=== PATIENT | female | born 1965 | race Caucasian/White ===

== ENCOUNTER 2023-10-25 01:26 | Day surgery (SDC) | payer OTHER, SELFPAY ==
[2023-10-15 13:33] VITALS: BMI 24.2
--- NOTE | 2023-10-15 13:41 | PC.NURSE ---
Report to the Outpatient Waiting Room, entrance under the green pavilion located off [facility], at time 1000_ on date 10/25/23___. Planned Procedure Time: _1200_. Time changes happen often and if your time is changed the preop area will call you the afternoon before. - You and your visitor will be asked to self-screen and do not enter if you have any COVID symptoms. - A mask is optional within the hospital at this time. Patients may have clear liquids (water, carbonated beverages, clear teas, apple juice) until 3 hours prior to surgery with a maximum of 20 ounces. - No food from midnight until time of surgery - Infants may have breast milk until 4 hours before surgery, infant formula 6 hours prior to surgery. - Children will be allowed to drink immediately following surgery. If applicable, please bring a bottle or sippy cup to assist with drinking. Juice, water, soda, and popsicles are readily available. For infants on formula, please bring formula the day of surgery. Pacifiers are allowed. Take the following medications with a SIP of water the morning of surgery: __PAIN MEDICATION NEEDED_, FLOMAX DO NOT STOP ANY OF YOUR OTHER PRESCRIPTION MEDICATIONS PRIOR TO SURGERY ?EXCEPT THE FOLLOWING Medications to discontinue per physician NONE Date to take last dose Please no make-up, nail mauritian, hairspray, perfume, deodorant, or body powder the day of surgery. No jewelry (including any body piercings) or valuables the day of surgery, leave them at home. Please take a shower or bath the night before, or the morning of, surgery with an antibacterial soap. Wear comfortable, loose fitting clothing. Children are encouraged to wear pajamas. - Jewelry must be removed prior to entering the operating room. Rings and piercings that are not removed may be cut off. - The hospital will not accept responsibility for valuables. - Please leave all valuables, including medications, at home the day of surgery. If you are going home after surgery, a licensed motor vehicle escort driver must drive you home. - NO public transportation without another adult if you receive anesthesia. - We recommend that an adult stay with you for 24 hours following discharge. - We also recommend that you do not drive, make important decision, drink alcoholic beverages, or take any drugs that were not prescribed by your health care provider for at least 24 hours after your discharge time. For Pediatric surgeries, we recommend two adults accompany the child home. Follow any additional instructions given to you from your surgeon. If you or anyone in your household have experienced Covid symptoms in the past week, please notify your surgeon or the nurse liaison at the phone number below for possible testing. Telephone instructions given to __PATIENT_and asked if any additional questions and then verbalized understanding. Patient advised to call surgeon office or pre surgery nurse liaison [phone] if any additional questions.
--- NOTE | 2023-10-23 06:52 | P.HP_ITS ---
History of Present Illness History of Present Illness Consent: Risks, benefits, and alternatives have been discussed and questions answered. Patient agrees to proceed with procedure. 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 She recently became symptomatic with left flank pain and hematuria. Imaging demonstrated several stones in her left kidney with an 8.3 cm stone in her left renal pelvis. After discussion of options she has elected for left ESWL. She is aware the risk including, but not limited to, adverse cardiopulmonary events, need for additional procedures, hematuria and perinephric hematoma. Review of Systems Review of Systems: All systems reviewed & are unremarkable except as noted in HPI and below PMFSH Social History Social History Smoking status: Never smoker Living arrangements: with family Meds Home Medications and Allergies Home Medications Medication Instructions Recorded Confirmed Type acetaminophen 325 mg tablet 650 mg PO PRN PRN Pain 10/15/23 10/15/23 History hydrocodone 5 mg-acetaminophen 325 1 tablet PO PRN PRN Pain 10/15/23 10/15/23 History mg tablet tamsulosin 0.4 mg capsule 0.4 mg PO PRN PRN Bladder Spasms 10/15/23 10/15/23 History Allergies Allergy/AdvReac Type Severity Reaction Status Date / Time Penicillins Allergy Rash Verified 10/15/23 13:31 Exam Const: General: no acute distress Resp: Effort & Inspection: normal respiratory effort GI: Inspection: non-distended GI Palp: No abdominal tenderness and No Guarding due to palpation present (GI) Auscultation: normal bowel sounds Assessment and Plan Assessment and plan (1) Left renal stone: Code(s): N20.0 - Calculus of kidney Status: Acute Assessment and Plan: * Left ESWL
[2023-10-25] VITALS (9 sets, daily range): BP systolic 118–138; BP diastolic 71–94; PULSE 72–99; RESP 14–20; TEMP 36.4–36.5; O2SAT 98–100
--- NOTE | ~2023-10-25 | XR_ITS ---
EXAMINATION: XR abdomen/kub 1V DATE: 10/25/2023 09:59 INDICATION: Left kidney stone. TECHNIQUE: A supine view of the abdomen on 2 radiographs was obtained. COMPARISON: None. FINDINGS: There are no dilated loops of bowel. Calcifications in the pelvis are likely phleboliths. T here is a 9 mm stone in left kidney. IMPRESSION: 1. 9 mm left kidney stone. Reviewed, dictated and finalized at location A. IMPRESSION: 1. 9 mm left kidney stone.
--- NOTE | 2023-10-25 10:28 | WPDHPUPDATE1 ---
History and Physical Update Update Date/Time: 10/25/23 10:28 History and Physical has been reviewed, including an updated exam of the patient. There are NO changes in the patient's condition. Risks, benefits, and alternatives have been discussed and questions answered. Patient agrees to proceed with procedure.
[2023-10-25] MEDS: LACTATED RINGERS 1,000 ML 30 ML IV CONT (10:46)
--- NOTE | 2023-10-25 12:06 | P.PNAN_ITS ---
Anes - Initial Pre Proc Eval Procedure: Operation Date: 10/25/23 12:00 Proposed Procedures p Left Extracorporeal Shock Wave Lithotripsy - Cas Hernandez MD Date/Time: 10/25/23 12:06 Surgeon: Cas Hernandez MD Pre Op Diagnosis: left renal stone Patient Data Age: 58 Gender: F Height: 1.57 m Weight: 65.6 kg Last Vital Signs Temp 36.5 C 10/25/23 10:30 Pulse 87 10/25/23 10:30 BP 138/94 H 10/25/23 10:30 Pulse Ox 99 10/25/23 10:30 O2 Del Method Room Air 10/25/23 10:30 Allergies Allergy/AdvReac Type Severity Reaction Status Date / Time Penicillins Allergy Rash Verified 10/15/23 13:31 Home Medications Medication Instructions Recorded Confirmed Type acetaminophen 325 mg tablet 650 mg PO PRN PRN Pain 10/15/23 10/15/23 History hydrocodone 5 mg-acetaminophen 325 1 tablet PO PRN PRN Pain 10/15/23 10/15/23 History mg tablet tamsulosin 0.4 mg capsule 0.4 mg PO PRN PRN Bladder Spasms 10/15/23 10/15/23 History Patient hx anesthesia problems: none Family hx anesthesia problems: none Results Review: All pre-operative results and documents have been reviewed as part of the pre- operative evaluation. [facility] Social History Social History Smoking status: Never smoker Living arrangements: with family Anes - Eval Final PreProcedure Day of Procedure 10/25/23 12:06 Patient weight: overweight Heart: regular rate and rhythm Lungs: clear to auscultation Airway: Mallampati scale class II Neurological: alert and oriented Last oral intake: >/= 8 hours ASA classification: II Emergent: no Anesthetic plan: proceed Anesthesia type and monitoring: general LMA and standard monitoring Results Review: All pre-operative results and documents have been reviewed as part of the pre- operative evaluation. Informed Consent: The patient's anesthetic plan and its attendant risks and benefits were discussed with the patient/family/POA. Questions were solicited and answers provided to the satisfaction of the patient/family/POA.
[2023-10-25] MEDS: ceFAZolin 2 GM/D5W 50 ML 2 GM/50 ML BAG IVPB (12:51)
--- NOTE | 2023-10-25 12:57 | W.PM.PROC2 ---
Procedure Note - Detailed Date of Procedure 10/25/23 Pre-op Diagnosis 6mm left renal stone Post-op Diagnosis Same Procedure Performed Left ESWL Surgeon Cas Hernandez MD Anesthesia General Description of Procedure The patient was brought to the operative suite where she was placed in the supine position on the Dornier lithotripsy table. The focal point of the lithotripter was placed at a 6mm left renal calculus. A total of 2500 shocks were delivered at a power setting of 4. There appeared to be good fragmentation of the stone. The patient tolerated the procedure well and was taken to the recovery room in good condition. Drains No Packing No Pathology None sent Complications No immediate complications Condition Stable Disposition PACU
== END 2023-10-25 15:17 | disposition home or self-care (01) ==
PROVIDERS: Visit Provider Urology
PROC: (CPT 50590; principal; 2023-10-25 12:00)
DX: N20.0 Calculus of kidney (principal)
CPT/HCPCS: 50590; 74018; J0690; J1100; J1596; J2371; J2405; J2704; J3010; J7120

== ENCOUNTER 2023-11-01 11:46 | Outpatient (CLI) | payer OTHER, SELFPAY ==
--- NOTE | ~2023-11-01 | XR_ITS ---
XR abdomen/kub 1V 11/01/2023 12:04 INDICATION: Follow-up renal stone TECHNIQUE: KUB COMPARISON: 10/25/2023 FINDINGS: Bowel gas pattern is normal. There are peripheral calcifications in the left upper abdomen which are unchanged, cannot exclude splenic artery aneurysm. There is no evidence of free air, mass, organomegaly, ascites or obstruction. No abnormal calculi are seen. The bones appear intact. IMPRESSION: 1: No acute abdominal abnormality identified. 2: Crescentic calcification left upper abdomen. Cannot exclude splenic artery aneurysm. Reviewed, dictated and finalized at location B. IMPRESSION: 1: No acute abdominal abnormality identified. 2: Crescentic calcification left upper abdomen. Cannot exclude splenic artery a neurysm.
== END 2023-11-01 11:47 | disposition home or self-care (01) ==
PROVIDERS: Visit Provider Urology
DX: N20.0 Calculus of kidney (principal); R19.8 Other specified symptoms and signs involving the digestive system and abdomen
CPT/HCPCS: 74018

== ENCOUNTER 2024-03-02 11:32 | Outpatient (CLI) | payer OTHER, SELFPAY ==
--- NOTE | ~2024-03-02 | XR_ITS ---
XR abdomen/kub 1V 03/02/2024 11:45 INDICATION: Flank pain TECHNIQUE: KUB COMPARISON: 11/01/2023 FINDINGS: Bowel gas pattern is normal. There is no evidence of free air, mass, organomegaly, ascites or obstruction. There are pelvic phleboliths. No abnormal calculi are seen. The bones appear intact . Curvilinear calcification left upper abdomen, likely splenic artery aneurysm. IMPRESSION: 1: No acute abdominal abnormality identified. Reviewed, dictated and finalized at location B.
== END 2024-03-02 11:33 | disposition home or self-care (01) ==
PROVIDERS: Visit Provider Urology
DX: N20.0 Calculus of kidney (principal)
CPT/HCPCS: 74018

== ENCOUNTER 2025-03-08 12:22 | Outpatient (CLI) | payer OTHER, SELFPAY ==
--- NOTE | ~2025-03-08 | XR_ITS ---
XR abdomen/kub 1V 03/08/2025 12:41 INDICATION: Flank pain TECHNIQUE: KUB COMPARISON: Comparison to multiple prior studies sequentially, with oldest reviewed study dated 10/25/2023. FINDINGS: Bowel gas pattern is normal. There is no evidence of free air, mass, organomegaly, ascites or obstruction. No abnormal calculi are seen. The bones appear intact. Calcifications in the pelvis are believed to be phleboliths. Curvilinear calcifications left upper abdomen, suspicious for splenic artery aneurysm. IMPRESSION: 1: No acute abdominal abnormality identified. Reviewed, dictated and finalized at location O.
== END 2025-03-08 12:23 | disposition home or self-care (01) ==
PROVIDERS: Visit Provider Urology
DX: N20.0 Calculus of kidney (principal)
CPT/HCPCS: 74018